=== PATIENT | female | born 1960 ===

== ENCOUNTER → 2018-11-15 | Outpatient (REF) | payer OTHER ==
[2018-11-22 14:41] LABS: HPV LOW VOL RFLX Negative (Negative)
== END ==
LOC: M LAB LCGH 15:07
PROVIDERS: ATTEND Nurse Practitioner Adult Health
DX: Z12.72 Encounter for screening for malignant neoplasm of vagina (principal); Z90.710 Acquired absence of both cervix and uterus

== ENCOUNTER → 2019-03-13 | Outpatient (REF) | payer OTHER | LOC: M LAB LCGH 11:35 | PROVIDERS: ATTEND Nurse Practitioner Adult Health | DX: Z12.72 Encounter for screening for malignant neoplasm of vagina (principal); R87.610 Atypical squamous cells of undetermined significance on cytologic smear of cervix (ASC-US); Z90.710 Acquired absence of both cervix and uterus | CPT/HCPCS: 87624; G0123 ==

== ENCOUNTER → 2019-04-18 | Outpatient (REF) | payer OTHER | LOC: M LAB LCGH 11:40 | PROVIDERS: ATTEND Nurse Practitioner Adult Health | DX: Z12.72 Encounter for screening for malignant neoplasm of vagina (principal); N95.2 Postmenopausal atrophic vaginitis | CPT/HCPCS: 87624; G0123 ==